=== PATIENT | male | born 1950 | race Asian ===

== ENCOUNTER → 2017-02-14 | Outpatient (CLI) | payer MEDICARE, OTHER | END | disposition home or self-care (01) | LOC: RADPV 09:45 | PROVIDERS: ATTEND Internal Medicine | DX: R05 Cough (principal); M41.84 Other forms of scoliosis, thoracic region | CPT/HCPCS: 71020 ==

== ENCOUNTER → 2018-07-09 | Outpatient (CLI) | payer MEDICARE, OTHER | END | disposition home or self-care (01) | LOC: RADMN 09:26 | PROVIDERS: ATTEND Internal Medicine | DX: S43.401A Unspecified sprain of right shoulder joint, initial encounter (principal); M19.011 Primary osteoarthritis, right shoulder; M25.411 Effusion, right shoulder; M62.511 Muscle wasting and atrophy, not elsewhere classified, right shoulder; M65.811 Other synovitis and tenosynovitis, right shoulder; X58.XXXA Exposure to other specified factors, initial encounter; Y93.89 Activity, other specified; Y92.89 Other specified places as the place of occurrence of the external cause; Y99.8 Other external cause status | CPT/HCPCS: 73221 ==

== ENCOUNTER → 2022-02-04 | Outpatient (CLI) | payer MEDICARE, OTHER | END | disposition home or self-care (01) | LOC: RADMN 07:54 | PROVIDERS: ATTEND Internal Medicine | DX: M54.31 Sciatica, right side (principal); I77.1 Stricture of artery | CPT/HCPCS: 72148 ==